=== PATIENT | female | born 1995 | race Caucasian/White ===

== ENCOUNTER 2019-11-19 05:40 | Inpatient (IN) ==
[2019-11-19] MEDS ORDERED: LACTATED RINGERS 1,000 ML IV ONE ×2 (05:55→07:35)
[2019-11-19] MEDS ORDERED: ONDANSETRON 4 MG/2 ML VIAL IV PRN ×2 (05:55→21:10)
[2019-11-19] MEDS ORDERED: LACTATED RINGERS 500 ML IV PRN (05:55)
[2019-11-19] MEDS ORDERED: OXYTOCIN/LR 20 UNIT/1,000 ML BAG IV SCH (06:00)
[2019-11-19] MEDS ORDERED: LACTATED RINGERS 1,000 ML IV SCH (06:00)
[2019-11-19 06:52] LABS: Basophils % 0.3 % (0.0-0.8); Eosinophils # 0.2 10*3/uL (0.0-0.87); Hematocrit 33.8 VOL% (35.7-47.0); Hemoglobin 10.9 GM/DL (12.0-16.0); Immature Granulocytes % 0.9 %; Immature Granulocytes Absolute 0.09 #; Lymphocytes # 2.1 10*3/uL (1.4-4.0); Mean Corpuscular HGB Conc 32.2 GM/DL (32-36); Mean Corpuscular Volume 84.7 FL (87-102); Mean Platelet Volume 12.6 FL (9.6-12.0); Monocytes % 9.4 % (1.7-12.7); Neutrophils % 65.4 % (38.7-73.9); Platelet Count 144 T/CUMM (130-400); Red Blood Count 3.99 MC/CUMM (3.8-5.5); Red Cell Distribution Width 13.2 % (9.3-17.3); White Blood Count 9.6 T/CUMM (4-12)
[2019-11-19 07:09] LABS: Albumin 2.5 G/DL (3.4-5.0); Bilirubin,Total 0.4 MG/DL (0.2-1.0); Calcium 8.8 MG/DL (8.5-10.1); Total Protein 6.4 G/DL (6.4-8.3)
[2019-11-19] MEDS ORDERED: PROMETHAZINE 25 MG/1 ML VIAL IM ONE (07:35)
[2019-11-19] MEDS ORDERED: NALOXONE 0.4 MG/ML VIAL IV PRN (07:35)
[2019-11-19] MEDS ORDERED: CITRIC ACID/SODIUM CITRATE 30 ML UDCUP PO ONE (07:35)
[2019-11-19] MEDS ORDERED: FAMOTIDINE 20 MG/2 ML VIAL IV ONE (07:35)
[2019-11-19] MEDS ORDERED: hydrOXYzine HCL 25 MG/1 ML VIAL IM PRN (07:35)
[2019-11-19] MEDS ORDERED: diphenhydrAMINE 50 MG/1 ML VIAL IV PRN ×2 (07:35)
[2019-11-19] MEDS ORDERED: ePHEDrine 50 MG/ML AMP IV PRN (07:35)
[2019-11-19] MEDS ORDERED: fentaNYL 2 MCG/ROPIV 0.2% EPID 100 ML EPIDURAL SCH (08:00)
[2019-11-19 12:01] LABS: Apearance,Urine CLEAR (Clear); Bilirubin,Urine Negative (Negative); Blood, Urine Negative (Negative); Glucose,Urine (UA) Negative (Negative); Ketones,Urine Negative (Negative); Nitrite,Urine Negative (Negative); Protein,Urine Negative; Urine Color Colorless (Yellow); Urine Specific Gravity 1.005 (1.001-1.035); Urine Urobilinogen < 2.0 EU/DL (0.2-1.0)
[2019-11-19] MEDS ORDERED: BUTORPHANOL 2 MG/ML VIAL ONE (19:13)
[2019-11-19] MEDS ORDERED: TRANEXAMIC ACID 1,000 MG/10 ML VIAL ONE (19:14)
[2019-11-19] MEDS ORDERED: METHYLERGONOVINE 0.2 MG/1 ML AMP ONE (19:14)
[2019-11-19] MEDS ORDERED: miSOPROStoL 200 MCG TABLET ONE (19:14)
[2019-11-19] MEDS ORDERED: CARBOPROST TROMETHAMINE 250 MCG/ML AMP IM ONE (19:15)
[2019-11-19] MEDS ORDERED: SODIUM CHLORIDE 0.9% 0 ML IV ONE (19:15)
[2019-11-19] MEDS ORDERED: OXYTOCIN/LR 20 UNIT/1,000 ML BAG IV ONE (21:10)
[2019-11-19] MEDS ORDERED: HYDROCORTISONE 2.5% RECTAL CREAM 30 GM TUBE TOP PRN (21:10)
[2019-11-19] MEDS ORDERED: LANOLIN 50% CREAM 0.3 OZ TUBE TOP PRN (21:10)
[2019-11-19] MEDS ORDERED: RHO(D) IMMUNE GLOBULIN 300 MCG SYRINGE IM ONE (21:10)
[2019-11-19] MEDS ORDERED: oxyCODONE/ACETAMINOPHEN 5-325 MG TABLET PO PRN (21:10)
[2019-11-19] MEDS ORDERED: MEASLES/MUMPS/RUBELLA VACCINE 0.5 ML VIAL SUBCUT ONE (21:10)
[2019-11-19] MEDS ORDERED: BENZOCAINE 20%/MENTHOL 0.5% SPRAY 56 GM CAN TOP PRN (21:10)
[2019-11-19] MEDS ORDERED: ACETAMINOPHEN 325 MG TABLET PO PRN (21:10)
[2019-11-19] MEDS ORDERED: BISACODYL 10 MG SUPP RECTAL PRN (21:10)
[2019-11-19] MEDS ORDERED: DIPH/TET/ACEL PERT BOOSTER VACCINE 0.5 ML VIAL IM ONE (21:10)
[2019-11-19] MEDS ORDERED: WITCH HAZEL PADS 100/JAR TOP PRN (21:10)
[2019-11-19] MEDS: IBUPROFEN 800 MG TABLET PO PRN (22:45)
[2019-11-19] MEDS: oxyCODONE/ACETAMINOPHEN 5-325 MG TABLET PO PRN (23:01)
[2019-11-20 06:34] LABS: Basophils % 0.3 % (0.0-0.8); Eosinophils # 0.1 10*3/uL (0.0-0.87); Eosinophils % 0.5 % (0.00-10.9); Hemoglobin 8.6 GM/DL (12.0-16.0); Immature Granulocytes % 0.5 %; Immature Granulocytes Absolute 0.06 #; Lymphocytes # 1.6 10*3/uL (1.4-4.0); Lymphocytes % 13.5 % (21.3-54.2); Mean Corpuscular HGB Conc 31.9 GM/DL (32-36); Mean Corpuscular Volume 85.4 FL (87-102); Mean Platelet Volume 12.9 FL (9.6-12.0); Monocytes % 10.2 % (1.7-12.7); Platelet Count 120 T/CUMM (130-400); Red Blood Count 3.16 MC/CUMM (3.8-5.5); Red Cell Distribution Width 13.2 % (9.3-17.3); White Blood Count 11.8 T/CUMM (4-12)
[2019-11-20] MEDS: oxyCODONE/ACETAMINOPHEN 5-325 MG TABLET PO PRN (08:00)
[2019-11-20] MEDS: DOCUSATE SODIUM 100 MG CAPSULE PO SCH ×2 (09:45→20:23)
[2019-11-20] MEDS: FERROUS SULFATE 325 MG TABLET PO SCH ×2 (09:45→20:23)
[2019-11-20] MEDS: IBUPROFEN 800 MG TABLET PO PRN ×2 (12:10→20:22)
[2019-11-21] MEDS: IBUPROFEN 800 MG TABLET PO PRN (04:15)
[2019-11-21] MEDS: DOCUSATE SODIUM 100 MG CAPSULE PO SCH (08:30)
[2019-11-21] MEDS: FERROUS SULFATE 325 MG TABLET PO SCH (08:30)
[2019-11-21 09:50] VITALS: BP 114/73
== END 2019-11-21 11:50 | disposition home or self-care (01) | DRG 807 ==
LOC: N.LD 05:40 → N.OB 23:21
PROVIDERS: ADMIT Specialist; ATTEND Specialist